=== PATIENT | male | born 1960 | race African-American/Black ===

== ENCOUNTER 2017-06-21 15:45 | Emergency (ER) | payer MEDICAID, OTHER ==
[~2017-06-21] VITALS: Ht 177.8 cm; Wt 110.0 kg
[~2017-06-21 15:45] MED LIST: OMEP20CA10 PO
[2017-06-21 15:46] VITALS: BP 162/97
== END 2017-06-21 19:30 | disposition left against medical advice (07) ==
LOC: ER 15:57
DX: M79.662 Pain in left lower leg (principal); Z53.21 Procedure and treatment not carried out due to patient leaving prior to being seen by health care provider

== ENCOUNTER 2017-09-15 17:33 | Emergency (ER) | payer MEDICAID, OTHER ==
[~2017-09-15] VITALS: Ht 172.7 cm; Wt 101.0 kg
[2017-09-15 19:31] VITALS: BP 146/98
[2017-09-16] MEDS ORDERED: AMLO10TA80 PO (06:11)
[2017-09-16] MEDS ORDERED: HYDR12.529 PO (06:13)
== END 2017-09-16 00:19 | disposition left against medical advice (07) ==
LOC: ER 17:33
DX: M79.671 Pain in right foot (principal); M79.672 Pain in left foot; M79.89 Other specified soft tissue disorders; I10 Essential (primary) hypertension
CPT/HCPCS: 99281

== ENCOUNTER 2017-09-16 04:15 | Emergency (ER) | payer MEDICAID, OTHER ==
[~2017-09-16] VITALS: Ht 170.2 cm; Wt 102.0 kg
[2017-09-16] MEDS ORDERED: AMLO10TA80 PO (06:11)
[2017-09-16] MEDS ORDERED: HYDR12.529 PO (06:13)
[2017-09-16] MEDS ORDERED: LISINOPRIL 20MG TABLET PO ONE (06:15)
[2017-09-16 07:34] LABS: CLARITY URINE CLEAR (CLEAR); COLOR URINE YELLOW (YELLOW); KETONES URINE NEGATIVE (NEGATIVE); LEUKOCYTE ESTERASE URINE TRACE (NEGATIVE); NITRITE URINE NEGATIVE (NEGATIVE); OCCULT BLOOD URINE NEGATIVE (NEGATIVE); PH URINE 6.5 (4.5-8.0); PROTEIN URINE TRACE (NEGATIVE); SPECIFIC GRAVITY URINE 1.016 (1.005-1.030); UROBILINOGEN URINE 0.2 E.U./dL (0.2-1.0)
[2017-09-16 07:37] LABS: BASOPHILS % 0.9 % (0.0-2.0); CHLORIDE 103 mEq/L (98-107); EOSINOPHILS % 3.6 % (0.0-5.0); HEMATOCRIT. 43.7 % (42.0-52.0); HEMOGLOBIN. 14.1 g/dL (14.0-18.0); LYMPHOCYTES % 31.4 % (20.0-50.0); MEAN CORPUSCULAR HEMOGLOBIN 26.1 pg (28.0-32.0); MEAN PLATELET VOLUME 6.4 fl (7.4-10.4); MONOCYTES % 6.3 % (2.0-8.0); NEUTROPHILS % 57.8 % (40.0-76.0); PLATELET 342 x1000/uL (130-400); RED CELL DISTRIBUTION WIDTH 15.2 % (11.6-14.6)
[2017-09-16 07:41] LABS: PROTHROMBIN TIME 10.7 sec (9.4-11.6)
[2017-09-16 08:02] LABS: *AMPHETAMINES SCREEN URINE PRESUMTIVE POSITIVE (NEGATIVE); *BARBITURATES SCREEN URINE NEGATIVE (NEGATIVE); *BENZODIAZEPINES SCREEN URINE NEGATIVE (NEGATIVE); *COCAINE SCREEN URINE NEGATIVE (NEGATIVE)
[2017-09-16 08:03] LABS: CANNABINOID URINE SCREEN NEGATIVE (NEGATIVE); METHADONE URINE SCREEN NEGATIVE (NEGATIVE); OPIATES URINE SCREEN NEGATIVE (NEGATIVE); PHENCYCLIDINE URINE SCREEN NEGATIVE (NEGATIVE)
[2017-09-16 09:02] VITALS: BP 159/96
== END 2017-09-16 09:23 | disposition home or self-care (01) ==
LOC: ER 04:15
DX: I12.9 Hypertensive chronic kidney disease with stage 1 through stage 4 chronic kidney disease, or unspecified chronic kidney disease (principal); N18.9 Chronic kidney disease, unspecified; F15.10 Other stimulant abuse, uncomplicated
CPT/HCPCS: 36415; 71045; 80053; 80305; 81003; 83880; 84484; 85025; 85610; 93005; 99285; Z7610